=== PATIENT | male | born 1995 | race Hispanic/Latino ===

== ENCOUNTER 2021-02-11 16:09 | Emergency (ER) | payer OTHER, SELFPAY ==
[2021-02-11 16:17] VITALS: BP 145/80; PULSE 66; RESP 16; TEMP 36.4; O2SAT 99
--- NOTE | 2021-02-11 16:54 | ED.GENADULT ---
HPI - General Adult General Chief complaint: Unspecified Stated complaint: fever/chills Time Seen by Provider: 02/11/21 16:30 Source: patient and RN notes reviewed Mode of arrival: ambulatory Limitations: no limitations History of Present Illness HPI narrative: 26-year-old male presents with complaints of fever and chills for 1 day. ?Eduardo reports waking on Tuesday02/10/21 with a fever and chills, called off from work and now needs notification to return to work. ?Nyquil, last taken in AM on 02/10/2021 with relief. Intermittent pressure in ears. History of allergies. ?Denies itching or drainage. ?Denies decreased hearing and tinnitus. Denies rhinorrhea and congestion. Denies current or recent URI symptoms. ?No facial swelling. ?Fevers as high as 100.7F. temporal. ?Denies sore throat, drooling, neck or throat swelling. ?No chest pain or shortness of breath. ?Denies nausea, vomiting, and abdominal pain. ?Tolerating liquids well. ?Remains active. ?The patient reports he was diagnosed with COVID-19 March 2020. The patient reports he is not waiting for the results of a COVID-19 lab test. The patient reports he does not have weakness, fatigue, or myalgia. ?The patient reports he does not have a new or worsening cough or shortness of breath. ?The patient reports he does not have any loss of taste or diarrhea. ?Denies recent traveling. ?Denies concerns for COVID-19 or exposures. ?At this time, the patient is not suspected of having COVID-19. Some parts of this dictation were generated by voice recognition software and may contain typographical and/or grammatical inaccuracies. Related Data Allergies Allergy/AdvReac Type Severity Reaction Status Date / Time No Known Allergies Allergy Mild Verified 02/11/21 16:26 Review of Systems Review of Systems: Narrative: CONSTITUTIONAL: Complains of low-grade fever, chills. Denies sweats. EYES: Denies visual changes, redness, discharge. ENT: Denies rhinorrhea, congestion, sore throat, otalgia, tinnitus, decreased hearing. Complains of intermittent ear pressure. CARDIOVASCULAR: Denies chest pain, palpitations, edema. RESPIRATORY: Denies dyspnea, wheezing, cough. GASTROINTESTINAL: Denies abdominal pain, nausea, vomiting, diarrhea. SKIN: Denies rash or itching. MUSCULOSKELETAL: Denies acute back pain, joint pain, or myalgia. NEUROLOGIC: Denies numbness or focal weakness. PSYCHIATRIC: Denies anxiety or depression. All systems reviewed & are unremarkable except as noted in HPI and below. [facility] Past Medical History Medical History (Updated 02/12/21 @ 00:01 by Brendon Quinn) Allergies COVID-19 03/2020 Surgical History Surgical History (Updated 02/11/21 @ 17:09 by EZRA Delgado) No significant past surgical history Family History Family History (Updated 02/11/21 @ 17:09 by EZRA Delgado) Father Diabetes mellitus Mother Alive and well Social History Social History (Updated 02/11/21 @ 17:10 by EZRA Delgado) Smoking status: Light tobacco smoker Tobacco type: cigarettes Second hand tobacco smoke exposure: No (Smokes 1 pack of cigarettes every 2 weeks) Alcohol intake: current Substance use: never Substance use type: does not use Living arrangements: with family Occupation/Education: occupation Gender identity (if verbalized by the patient): Male Sexual Orientation (if Verbalized by the Patient): Straight or Heterosexual Comments At time of signature, agree with the nurse past medical, surgical, social, and family history. There is no relevant family history pertinent to the presenting complaint. Exam Narrative: Exam Narrative: GENERAL: This is a well-nourished, well-developed patient, in no apparent distress. Talks in full sentences and ambulates with steady gait without dyspnea. HEAD: Normocephalic, atraumatic. EYES: PERRL. Sclera clear/white. Vision is grossly intact. EARS: External ears normal, auditory canals clear and with
[2021-02-12 16:29] LABS: SARS-CoV-2 RNA PCR Negative
== END 2021-02-11 17:15 | disposition home or self-care (01) ==
PROVIDERS: Emergency Provider Nurse Practitioner Family
DX: J00 Acute nasopharyngitis [common cold] (principal); J01.90 Acute sinusitis, unspecified; Z20.822 Contact with and (suspected) exposure to COVID-19
CPT/HCPCS: 99213; C9803; G0463; U0003; U0005

== ENCOUNTER → 2023-11-16 11:33 | Outpatient (CLI) | payer OTHER, SELFPAY ==
--- NOTE | ~2023-11-16 | XR_ITS ---
Cervical Spine: AP, lateral, oblique, open-mouth views Clinical History: Pain Findings: There is mild reversal of the normal cervical lordosis. The vertebral bodies and posterior elements appear intact. The intervertebral disc spaces are well maintained. Pre-vertebral soft tiss ues are unremarkable. Impression: Mild reversal of the normal cervical lordosis, otherwise unremarkable exam. Reviewed, dictated and finalized at [facility]. Impression: Mild reversal of the normal cervical lordosis, otherwise unremarkable exam.
--- NOTE | ~2023-11-16 | XR_ITS ---
Lumbosacral Spine: AP, oblique, and lateral views Clinical History: Pain Findings: The normal lordotic curve is maintained. The vertebral bodies and posterior elements are i ntact. The intervertebral disc spaces are preserved. The sacroiliac joints are normally outlined. Impression: No significant abnormality. Reviewed, dictated and finalized at [facility]. Impression: No significant abnormality.
== END ==
PROVIDERS: PCP Family Medicine; Visit Provider Family Medicine
DX: M54.2 Cervicalgia (principal); M54.41 Lumbago with sciatica, right side; G89.29 Other chronic pain
CPT/HCPCS: 72050; 72110

== ENCOUNTER 2023-11-24 08:50 | Outpatient (CLI) | payer OTHER, SELFPAY ==
--- NOTE | 2023-12-04 17:10 | WPDHOMESLEEP ---
Sleep Study - Home Unattended Date of Study: 11/24/23 Ordering Provider: Aj Porter MD Interpreting Provider: Rachell Valladares MD Home Sleep Study Type: Watch PAT Height: 1.65 m Weight: 79.832 kg Body Mass Index: 29.2 Neck Circumference (inches): 15.5 [place]: 6 Reason for Sleep Study Non restorative sleep, reports that he gasps for air during sleep Sleep History Eduardo Ocampo is a 28-year-old man who never feels that he is fully rested. His tells him that he sometimes gasps for air at night, has been going on more than 2 years. He has a difficult time waking in the morning. He rarely awakens from sleep feeling short of breath. He rarely awakens at night with heartburn, belching or coughing. He occasionally snores, rarely loudly enough that others complain. He occasionally has trouble breathing when he has a cold. He occasionally wakes up gasping for breath at night. He occasionally has breathing problems at night reported to him by others. He never sweats excessively at night or notices his heart pounding or beating irregularly at night. He occasionally falls asleep in the day, never involuntarily or while driving. He does not have loss of muscle tone with strong emotion. 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 He rarely feels paralyzed on waking or falling asleep. He does not have vivid dreamlike scenes upon waking or falling asleep. He does not feel afraid to go to sleep. He does not have nightmares. He occasionally remembers his dreams. He occasionally has racing thoughts. He does not feel sad or depressed. He occasionally has anxiety. He occasionally has muscular tension. He occasionally notices parts his body jerking and he occasionally kicks at night. He never has crawling or aching feelings in his legs. He never has leg pain at night. He does not have morning jaw pain. He does not grind his teeth at night. He is not bothered by pain during the day or awakened by pain during the night. He occasionally wakes up feeling stiff in the morning. He rarely wakes up with sore achy muscles. He does not wake up with pain in the neck and spine. Normal bedtime is 11:00 p.m. falling asleep within 15-30 minutes. He does not wake at all at night but he does use the bathroom which wakes him in the right of way worker hours. His normal wake time is between 5:00 a.m. and 9:00 a.m.. He keeps the same schedule on weekends. He estimates getting between 6 and 7 hours of sleep at night. He takes naps in the afternoon or evening. A short nap lasting 10-15 minute is not refreshing. He is usually drowsy for 2 hours after waking. He feels better in the afternoon compared to other times of day. Habits: Tobacco: occasionally Caffeine: 0-1 daily Alcohol: 6-12 beers per week Recreational: none PMFSH Past Medical History Medical History Allergies BMI 29.0-29.9,adult Chronic low back pain with right-sided sciatica X-ray of the lumbar spine on 11/16/2023 was normal. Chronic neck pain X-ray of the cervical spine on 11/16/2023 was normal except for mild loss of the lordotic curve. Cocaine use disorder, mild, abuse use each twice a month with friends Constipation COVID-19 03/2020 Encounter for wellness examination in adult GERD (gastroesophageal reflux disease) Hypersomnia Nail fungus left foot Overweight (BMI 25.0-29.9) Seasonal allergic rhinitis trees, grasses, ragweed, cats. Tobacco use 1 pack of cigarettes every 2 weeks Tonsillar hypertrophy Surgical History Surgical History No significant past surgical history Family History Family History Father Diabetes mellitus Alcoholism Mother Alive and well Other Depression Diabetes mellitus Grandparent Diabetes mellitus Grand
[2023-12-04 17:20] VITALS: BMI 29.2
== END 2023-11-25 10:49 | disposition home or self-care (01) ==
PROVIDERS: PCP Family Medicine; Visit Provider Family Medicine
DX: G47.33 Obstructive sleep apnea (adult) (pediatric) (principal); G47.10 Hypersomnia, unspecified
CPT/HCPCS: 95800

== ENCOUNTER 2024-11-29 08:36 | Outpatient (CLI) | payer OTHER, SELFPAY ==
--- OUTSIDE RECORDS SUMMARY | 2024-11-29 08:45 | XMS_ITS | Clinical Summary ---
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 Gender Identity Not on file Sexual Orientation Not on file Plan of Treatment Health Maintenance Due Date Last Done Comments Hepatitis C Virus (HCV) Screening 1993 TdaP Immunization 1993 Influenza Immunization (#1) 2024 06/04/2010 SARS-COV-2 Immunization ( season) 2024 Respiratory Syncytial Virus (RSV) Immunization (Adult) (1 - 1-dose 75+ series) 01/06/2068 Hepatitis B Immunization Completed 994, 1993, 1993 DTaP/Tdap/Td Immunization Discontinued 2003, 04/26/1994, 1993, Additional history exists Meningococcal Immunization (ACWY) Completed 06/04/2010 Pneumococcal Immunization Combined Aged Out No longer eligible based on patient's age to complete this topic Rotavirus Immunization Aged Out No lo nger eligible based on patient's age to complete this topic
--- NOTE | 2024-11-30 14:59 | WPDPFTINT ---
PFT Procedure Performed PFT Procedure Performed Spirometry with Pre/Post Bronchodilator Plethysmography (Lung Vol) Diffusing Cap (DLCO) Flow Vol Loop PFT Interpretation This is a pulmonary function test with pre and post-bronchodilator spirometry, plethysmography and diffusing capacity. The test was performed and results interpreted in accordance with the 2019 and 2005 ATS/ERS Task Force guidelines respectively using the Global Lung Function Initiative-2012 reference equations. Patient demonstrated good effort and cooperation. Reproducibility criteria were met. The quality of the pre bronchodilator spirometry maneuver was Grade B and post bronchodilator spirometry maneuver was Grade A. Findings: Spirometry: There is decreased maximal expiratory airflow at all lung volumes. The contour the inspiratory flow tracing is normal. The pre bronchodilator FVC is 3.74 L, 93% predicted. The pre bronchodilator FEV1 is 2.73 L, 79% predicted. The pre bronchodilator FEV1: FVC ratio 73%. The post bronchodilator FVC is 4.22 L, representing a 13% increase. The post bronchodilator FEV1 is 3.13 L, representing a 15% increase. The post bronchodilator FEV1: FVC ratio 74%. Plethysmography: The total lung capacity is 5.73 L, 97% predicted. The functional residual capacity is 2.44 L, 188% predicted. The residual volume is 1.85 L, 136% predicted. Diffusing capacity: The diffusing capacity unadjusted for hemoglobin and carboxyhemoglobin is 28.9, 88% predicted. Diffusing capacity adjusted for alveolar volume is 5.48, 101% predicted. Impression: There is a mild obstructive abnormality with a normal FEV1. There is significant improvement after inhaling a single dose of albuterol. The lung volumes are normal. The diffusing capacity is normal. There are no prior studies for comparison
== END 2024-11-29 08:37 | disposition home or self-care (01) ==
PROVIDERS: PCP Nurse Practitioner Family; Visit Provider Nurse Practitioner Family
DX: J44.9 Chronic obstructive pulmonary disease, unspecified (principal)
CPT/HCPCS: 94060; 94726; 94729

== ENCOUNTER → 2025-01-30 09:19 | Outpatient (CLI) | payer OTHER, SELFPAY ==
--- NOTE | ~2025-01-30 | XR_ITS ---
Right wrist Technique: PA and lateral views were obtained. Clinical History: Pain Findings: No acute fracture or dislocation is seen. Osseous alignment is anatomic. Joint spaces are p reserved. Soft tissues are unremarkable. Impression: Unremarkable right wrist radiographs. Reviewed, dictated and finalized at location [facility]. Impression: Unremarkable right wrist radiographs.
== END ==
LOC: EXPCRAD 09:24
PROVIDERS: PCP Nurse Practitioner Family; Visit Provider Nurse Practitioner Family
DX: M25.531 Pain in right wrist (principal)
CPT/HCPCS: 73100